=== PATIENT | male | born 1995 | race Caucasian/White ===

== ENCOUNTER 2019-12-14 20:47 | Inpatient (IN) | payer OTHER ==
[2019-12-14 21:15] VITALS: BMI 22.1
--- NOTE | 2019-12-14 21:20 | HP ---
CIWA Score - Admission Criteria [facility] Guidelines: Admission for Medically Managed Detox: Requires at least one of the followin. CIWA greater than 12 2. Seizures within the past 24 hours 3. Delirium tremens within the past 24 hours 4. Hallucinations within the past 24 hours 5. Acute intervention needed for co occurring medical disorder 6. Acute intervention needed for co occurring psychiatric disorder 7. Severe withdrawal that cannot be handled at a lower level of care (continued vomiting, continued diarrhea, abnormal vital signs) requiring intravenous medication and/or fluids 8. Admission Physical Exam S - Vital Signs Vital Signs: Vital Signs - 24 hr 12/14/19 21:13 Temperature 97.3 F L Pulse Rate 83 Respiratory 20 Rate Blood Pressure 125/71 Breathalyzer - Breathalyzer Breathalyzer: 0 Urine Drug Screen - Test Device Lot number: [id number] Expiration date: 10/30/21 - Control Is test valid?: Yes - Results Drug screen NEGATIVE: No Urine drug screen results: THC-Marijuana, ABRAHAN-Cocaine, FEN-Fentanyl, MOP-Opiates
--- NOTE | 2019-12-14 21:28 | BHS.RME ---
Substance Use & Tx History - Substance Use History Heroin Substance amount: 20 bags Frequency of use: Daily Substance route: Injection (ex: intravenous or skin popping) Date of Last Use: 12/14/19 - Last Treatment Date of last treatment: April 2019- [facility] [place] Where was last treatment: Detox Physical/Psych/Mental Status - Behavior Eye Contact: Normal - Cooperativeness Cooperativeness: Cooperative - Thinking Thought Processes: Logical Thought content: Future oriented - Physical Health Problems Is patient presently having any pain?: Yes (generalized body aches and pain) Does patient presently have any injuries (include location): No Does patient currently have a fever: No Is patient : No COWS - Scale Resting Pulse: 1= [place] 81-100 Sweatin=Flushed/Facial Moisture Restless Observation: 0= Sits Still Pupil Size: 0= Normal to Room Light Bone or Joint Aches: 2= Severe Diffuse Aches Runny Nose/ Eye Tearin= Nasal Congestion GI Upset > 30mins: 2= Nausea/Diarrhea (nausea, no diarrhea) Tremor Observation: 4= Gross Tremor/Twitching Yawning Observation: 1= 1-2x During Session Anxiety or Irritability: 4=Extreme Anxiety Goose Flesh Skin: 3=Piloerection COWS Score: 20 CIWA Nausea/Vomitin Muscle Tremors: 5 Anxiety: 4-Mod. Anxious/Guarded Agitation: 3 Paroxysmal Sweats: 2 Orientation: 3-Disoriented Date>2 days Tacttile Disturbances: 0-None Auditory Disturbances: 0-None Visual Disturbances: 0-None Headache: 2-Mild CIWA-Ar Total Score: 21 Treatment Recommendation - Level of Care Level of Care: Opioid Treatment Program (OTP)
--- NOTE | 2019-12-14 21:33 | HP ---
COWS - Scale Resting Pulse: 1= [place] 81-100 Sweatin=Flushed/Facial Moisture Restless Observation: 0= Sits Still Pupil Size: 0= Normal to Room Light Bone or Joint Aches: 2= Severe Diffuse Aches Runny Nose/ Eye Tearin= Nasal Congestion GI Upset > 30mins: 2= Nausea/Diarrhea (nausea, no diarrhea) Tremor Observation: 4= Gross Tremor/Twitching Yawning Observation: 1= 1-2x During Session Anxiety or Irritability: 4=Extreme Anxiety Goose Flesh Skin: 3=Piloerection COWS Score: 20 CIWA Score Nausea/Vomitin Muscle Tremors: 5 Anxiety: 4-Mod. Anxious/Guarded Agitation: 3 Paroxysmal Sweats: 2 Orientation: 3-Disoriented Date>2 days Tacttile Disturbances: 0-None Auditory Disturbances: 0-None Visual Disturbances: 0-None Headache: 2-Mild CIWA-Ar Total Score: 21 - Admission Criteria OASAS Guidelines: Admission for Medically Managed Detox: Requires at least one of the followin. CIWA greater than 12 2. Seizures within the past 24 hours 3. Delirium tremens within the past 24 hours 4. Hallucinations within the past 24 hours 5. Acute intervention needed for co occurring medical disorder 6. Acute intervention needed for co occurring psychiatric disorder 7. Severe withdrawal that cannot be handled at a lower level of care (continued vomiting, continued diarrhea, abnormal vital signs) requiring intravenous medication and/or fluids 8. Admission ROS [facility] Chief Complaint: Seeking admission to detox from alcohol and heroin Allergies/Adverse Reactions: Allergies Allergy/AdvReac Type Severity Reaction Status Date / Time No Known Drug Allergies Allergy Verified 12/14/19 22:12 Fish Containing Products AdvReac Severe Hives Verified 12/14/19 22:11 red (food color) AdvReac Severe Hives Verified 12/14/19 22:11 History of Present Illness: 24 years old male with 11 years of heroin dependence and 8 years of alcohol dependence is seeking admission to detox. This is his first admission to [facility] and he reports that his last admission was at [facility] in 2019. He reports use of 20 bags of heroin via intravenous route and he drinks half a pint of jennifer daily. He denies medical history, suicide attempt/suicidal ideation and reports psych. history of depression. He is unemployed, lives with his parents and denies any legal issues. 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 Exam Limitations: Clinical Condition (actively withdrawing) - Ebola screening Have you traveled outside of the country in the last 21 days: No Have you had contact with anyone from an Ebola affected area: No Have you been sick,other than usual withdrawal symptoms: No Do you have a fever: No - Review of Systems Constitutional: Chills, Loss of Appetite, Malaise, Night Sweats, Changes in sleep EENT: reports: Nose Congestion Respiratory: reports: No Symptoms reported Cardiac: reports: No Symptoms Reported GI: reports: Nausea, Poor Appetite, Poor Fluid Intake, Abdominal cramping : reports: No Symptoms Reported Musculoskeletal: reports: Back Pain, Joint Pain, Muscle Pain Integumentary: reports: Dryness, Flushing, Other (left hand and left lower back abrasions) Neuro: reports: Headache, Tremors Endocrine: reports: No Symptoms Reported Hematology: reports: No Symptoms Reported Psychiatric: reports: Anxious, Depressed Other Systems: Reviewed and Negative Patient History - Patient Medical History Hx Anemia: No Hx Asthma: No Hx Chronic Obstructive Pulmonary Disease (COPD): No Hx Cancer: No Hx Cardiac Disorders: No Hx Congestive Heart Failure: No Hx Hypertension: No Hx Hypercholesterolemia: No Hx Pacemaker: No HX Cerebrovascular Accident: No Hx Seizures: No Hx Diabetes: No Hx Gastrointestinal Disorders: No Hx Liver Disease: No Hx Genitourinary Disorders: No Hx Sexually Transmitted Disorders: No Hx Renal Disease (ESRD): No Hx Thyroid Disease: No Hx Human Immunodeficiency Virus (HIV): No (Negative 2018) Hx Hepatitis C: No Hx Depression: Yes (+ anxiety) Hx Suicide Attempt: No (Denies suicidal ideation at this time) Hx Bipolar Disorder: No Hx Schizophrenia: No - Patient Surgical History Past Surgical History: No - PPD History Previous Implant?: Yes Documented Results: Negative w/o proof Implanted On Prior R Admission?: No PPD to be Administered?: Yes - Reproductive History Patient is a Female of Child Bearing Age (11 -55 yrs old): No (Male) - Smoking Cessation Smoking history: Current every day smoker Have you smoked in the past 12 months: Yes Aproximately how many cigarettes per day: 10 Hx Chewing Tobacco Use: No Initiated information on smoking cessation: Yes 'Breaking Loose' booklet given: 12/14/19 - Substance & Tx. History Hx Alcohol Use: Yes Hx Substance Use: Yes Substance Use Type: Alcohol, Cocaine, Heroin, Marijuana Hx Substance Use Treatment: Yes ( [facility]) - Substances abused Alcohol Substance route: Oral Amount used: 1/2 pint jennifer Age of first use: 10 Date of last use: 12/14/19 Heroin Substance route: Injection Frequency: Daily Amount used: 20 bags Age of first use: 13 Date of last use: 12/14/19 Admission Physical Exam [facility] - Vital Signs Vital Signs: Vital Signs - 24 hr 12/14/19 21:13 Temperature 97.3 F L Pulse Rate 83 Respiratory 20 Rate Blood Pressure 125/71 - Physical General Appearance: Yes: Moderate Distress, Tremorous, Sweating, Anxious HEENTM: Yes: Nasal Congestion Respiratory: Yes: Lungs Clear, Normal Breath Sounds, No Respiratory Distress Neck: Yes: Within Normal Limits Breast: Yes: Breast Exam Deferred Cardiology: Yes: Within Normal Limits Abdominal: Yes: Normal Bowel Sounds, Soft Genitourinary: Yes: Within Normal Limits Back: Yes: Normal Inspection, Other (left lower back abrasion) Musculoskeletal: Yes: Back pain, Muscle Pain Extremities: Yes: Tremors, Other (left hand abrasion) Neurological: Yes: Normal Mood/Affect Integumentary: Yes: Track [place] (both hands) Cleared for Admission [facility] - Detox or Rehab [facility] Level of Care: Medically Managed Detox Regimen/Protocol: Methadone/Librium Claeared for Rehab Admission: No Breathalyzer - Breathalyzer Breathalyzer: 0 Urine Drug Screen - Test Device Lot number: [id number] Expiration date: 10/30/21 - Control Is test valid?: Yes - Results Drug screen NEGATIVE: No Urine drug screen results: THC-Marijuana, ABRAHAN-Cocaine, FEN-Fentanyl, MOP-Opiates Inpatient Rehab Admission - Rehab Decision to Admit Inpatient rehab admission?: No
[2019-12-14] MEDS ORDERED: MAGNESIUM CITRATE 300 ML BOTTLE PO PRN (22:02)
[2019-12-14] MEDS ORDERED: ACETAMINOPHEN 325 MG TABLET (FP) PO PRN ×2 (22:02)
[2019-12-14] MEDS ORDERED: BISMUTH SUBSALICYLATE 524 MG/30 ML UD PO PRN (22:02)
[2019-12-14] MEDS ORDERED: MAGNESIUM HYDROX 2400MG/30ML ORAL SUSPENSION 30 ML CUP PO PRN (22:02)
[2019-12-14] MEDS ORDERED: ONDANSETRON *ODT* 4 MG TABLET SL PRN (22:02)
[2019-12-14] MEDS ORDERED: cloNIDine HCL 0.1 MG TABLET PO PRN (22:02)
[2019-12-14] MEDS ORDERED: MENTHOL/PHENOL 1 EACH UD MM PRN (22:02)
[2019-12-14] MEDS ORDERED: MAG HYDROX/AL HYDROX/SIMETH 30 ML UNIT-DOSE CUP PO PRN (22:02)
[2019-12-14] MEDS ORDERED: METHADONE HCL 10 MG TABLET (FOR DETOX USE ONLY) PO ONE (22:30)
[2019-12-14] MEDS: chlordiazePOXIDE HCL 25 MG CAPSULE PO SCH (23:10)
[2019-12-15] MEDS: hydrOXYzine PAMOATE 25 MG CAPSULE (FP) PO PRN (06:29)
[2019-12-15] MEDS: chlordiazePOXIDE HCL 25 MG CAPSULE PO SCH ×4 (06:29→22:25)
--- NOTE | 2019-12-15 08:51 | PN ---
S CIWA - CIWA Score Nausea/Vomitin Muscle Tremors: 2 Anxiety: 0-No Anxiety, at Ease Agitation: 0-Normal Activity Paroxysmal Sweats: No Perspiration Orientation: 0-Oriented Tacttile Disturbances: 0-None Auditory Disturbances: 0-None Visual Disturbances: 0-None Headache: 0-None Present CIWA-Ar Total Score: 4 S COWS - Scale Resting Pulse: 0= [place] 80 or Below Sweatin= No chills or Flushing Restless Observation: 0= Sits Still Pupil Size: 0= Normal to Room Light Bone or Joint Aches: 0= None Runny Nose/ Eye Tearin= None GI Upset > 30mins: 0= None Tremor Observation of Outstretched Hands: 0= None Yawning Observation: 0= None Anxiety or Irritability: 0= None Goose Flesh Skin: 0=Smooth Skin COWS Score: 0 S Progress Note (SOAP) Subjective: Patient was examined by bedside. Patient is sitting up eating breakfast in the room. In no acute distress, complaints of mild nausea and slight tremor. Objective: 12/15/19 08:49 PE: General: No acute distress, alert and awake MSK: gait normal, pelvis stable, normal range of motion Skin: No lesions or abrasions skin color normal. MS: responds appropriately to questions, oriented x3 12/15/19 09:50 Last Vital Signs Temp Pulse Resp BP Pulse Ox 98.1 F 61 18 100/60 99 12/15/19 08:42 12/15/19 08:42 12/15/19 08:42 12/15/19 08:42 12/15/19 08:42 Current Medications Generic Name Dose Route Start Last Admin Trade Name Freq PRN Reason Stop Dose Admin Acetaminophen 650 mg 12/14/19 22:02 Tylenol - PO Q6H PRN PAIN LEVEL 4 - 6 Acetaminophen 650 mg 12/14/19 22:02 Tylenol - PO Q6H PRN FEVER Al Hydroxide/Mg Hydroxide 30 ml 12/14/19 22:02 Mylanta Oral Suspension - PO Q6H PRN DYSPEPSIA Bismuth Subsalicylate 524 mg 12/14/19 22:02 Pepto-Bismol - PO Q1H PRN DIARRHEA Chlordiazepoxide HCl 50 mg 12/14/19 23:00 12/15/19 06:29 Librium - PO 12/15/19 23:01 50 mg [id number] LAURA Administration Chlordiazepoxide HCl 25 mg 12/16/19 05:00 Librium - PO 12/16/19 23:01 [id number] LAURA Chlordiazepoxide HCl 25 mg 12/14/19 22:02 Librium - PO 12/16/19 23:59 Q4H PRN WITHDRAWAL(CONT SUBST) Chlordiazepoxide HCl 10 mg 12/17/19 05:00 Librium - PO 12/17/19 23:01 [id number] LAURA Chlordiazepoxide HCl 10 mg 12/18/19 05:00 Librium - PO 12/18/19 17:01 Q12H LAURA Chlordiazepoxide HCl 10 mg 12/17/19 00:00 Librium - PO 12/18/19 00:00 Q4H PRN WITHDRAWAL(CONT SUBST) Chlordiazepoxide HCl 10 mg 12/19/19 05:00 Librium - PO 12/19/19 05:01 ONCE@0500 ONE Clonidine 0.1 mg 12/14/19 22:02 Catapres - PO 12/16/19 23:59 Q4H PRN Withdrawal Symptoms Eucalyptus/Menthol/Phenol/Sorbitol 1 each 12/14/19 22:02 Cepastat Lozenge - MM 12/20/19 22:02 Q4H PRN SORE THROAT Hydroxyzine Pamoate 25 mg 12/14/19 22:02 12/15/19 06:29 Vistaril - PO 12/20/19 22:04 25 mg Q4HWA PRN Administration ANXIETY Ibuprofen 400 mg 12/14/19 22:02 Motrin - PO Q6H PRN PAIN LEVEL 1 - 3 Magnesium Citrate 300 ml 12/14/19 22:02 Citroma - PO Q48H PRN CONSTIPATION Magnesium Hydroxide 30 ml 12/14/19 22:02 Milk Of Magnesia - PO PRN PRN CONSTIPATION Melatonin 5 mg 12/15/19 22:00 Melatonin PO HS LAURA Methadone HCl 5 mg 12/19/19 06:00 Dolophine - PO 12/19/19 06:01 ONCE@0600 ONE Methadone HCl 10 mg 12/18/19 10:00 Dolophine - PO 12/18/19 10:01 ONCE ONE Methadone HCl 20 mg 12/16/19 10:00 Dolophine - PO 12/16/19 10:01 ONCE ONE Methadone HCl 20 mg/ Methadone 25 mg 12/15/19 10:00 HCl 5 mg PO 12/15/19 10:01 ONCE ONE Methadone HCl 10 mg/ Methadone 15 mg 12/17/19 10:00 HCl 5 mg PO 12/17/19 10:01 ONCE ONE Methocarbamol 500 mg 12/14/19 22:02 Robaxin - PO 12/20/19 22:02 Q6H PRN MUSCLE SPASMS Nicotine 14 mg 12/15/19 10:00 Nicoderm Patch - TD DAILY LAURA Nicotine Polacrilex 2 mg 12/14/19 22:02 Nicorette Gum - BUC Q2H PRN NICOTINE REPLACEMENT RX Ondansetron HCl 4 mg 12/14/19 22:02 Zofran Odt - SL Q8H PRN Nausea/Vomiting Multivit/Folic Acid/Iron 1 tab 12/15/19 10:00 Vitamins (Sjr) - PO DAILY LAURA Thiamine HCl 100 mg 12/15/19 22:00 Vitamin B1 - PO HS LAURA Discontinued Medications Generic Name Dose Route Start Last Admin Trade Name Freq PRN Reason Stop Dose Admin Methadone HCl 30 mg 12/14/19 22:30 12/14/19 23:10 Dolophine - PO 12/14/19 22:31 30 mg ONCE ONE Administration Tuberculin PPD 5 units 12/14/19 22:30 12/14/19 23:14 Tubersol ([facility] Only) 5ml Vial ID 12/14/19 22:31 0.1 ml ONCE ONE Administration Assessment: 12/15/19 08:49 Assesment: Patient is in detox day 1. Substances being detoxed form are alcohol and heroin on librium and methadone protocol. 12/15/19 08:50 Plan: Plan: Continue librium and methadone protocol
[2019-12-15] MEDS ORDERED: METHADONE HCL 10 MG TABLET (FOR DETOX USE ONLY) ONE (08:57)
[2019-12-15] MEDS ORDERED: METHADONE HCL 5 MG TABLET (FOR DETOX USE ONLY) ONE (08:57)
[2019-12-15] MEDS ORDERED: METHADONE (DETOX) 20 MG, METHADONE (DETOX) 5 MG PO ONE (10:00)
[2019-12-15] MEDS: PRENATAL VITAMINS W/ FOLIC ACID TABLET (FP) PO SCH (10:12)
[2019-12-15] MEDS: NICOTINE 14 MG/24 HOURS TOPICAL PATCH TD SCH (10:13)
[2019-12-15] MEDS: METHOCARBAMOL 500 MG TABLET PO PRN ×3 (10:16→23:14)
[2019-12-15 10:36] LABS: HEMATOCRIT 40.9 % (35.4-49); HEMOGLOBIN 13.8 GM/dL (11.7-16.9); MCH 28.4 pg (25.7-33.7); MCHC 33.7 g/dl (32.0-35.9); MEAN CELL VOLUME 84.4 fl (80-96); MEAN PLT VOLUME 9.1 fl (7.5-11.1); PLATELET COUNT 254 K/MM3 (134-434); RBC 4.84 M/mm3 (4.00-5.60); WHITE BLOOD COUNT 10.8 K/mm3 (4.0-10.0)
--- NOTE | 2019-12-15 10:52 | CONSULT ---
[facility] Psychiatric Consult - Data Date of interview: 12/15/19 Admission source: [facility] Identifying data: Patient is approached for the psychiatric evaluation (requested by medical provider). Mr Stevens declines. " I rather not talk to a psychiatrist. I am fine. There is nothing to discuss with psychiatrists." Nursing staff is informed of patient's choice to waive psychiatric consultation. Patient is found resting comfortably in his room. No evidence of distress or behavior to warrant concern at this time. Psychiatry-Liaison will follow if renewal of a consultation request.
[2019-12-15 10:55] LABS: ALBUMIN 3.6 g/dl (3.4-5.0); BILIRUBIN,TOTAL 1.5 mg/dL (0.2-1); BLOOD UREA NITROGEN 16.3 mg/dL (7-18); CALCIUM 8.9 mg/dL (8.5-10.1); CREATININE 0.9 mg/dL (0.55-1.3); POTASSIUM 3.7 mmol/L (3.5-5.1)
--- NOTE | 2019-12-15 12:41 | EKG ---
Test Reason : Blood Pressure : / mmHG Vent. Rate : 063 BPM Atrial Rate : 063 BPM P-R Int : 170 ms QRS Dur : 094 ms QT Int : 374 ms P-R-T Axes : 054 086 043 degrees QTc Int : 382 ms NORMAL SINUS RHYTHM WITH SINUS ARRHYTHMIA NON-SPECIFIC INTRA-VENTRICULAR CONDUCTION DELAY NO PREVIOUS ECGS AVAILABLE Confirmed by CHEVY FARMER MD ([id number]) on 12/15/2019 12:41:11 PM Referred By: Abundio Melgar Confirmed By:CHEVY FARMER MD
[2019-12-15] MEDS: IBUPROFEN 400 MG TABLET (FP) PO PRN ×2 (15:42→22:24)
[2019-12-15] MEDS: NICOTINE POLACRILEX 2 MG GUM BUC PRN (17:53)
[2019-12-15] MEDS: chlordiazePOXIDE HCL 25 MG CAPSULE PO PRN (19:28)
[2019-12-15] MEDS: THIAMINE HCL 100 MG TABLET (FP) PO SCH (22:24)
[2019-12-15] MEDS: MELATONIN 5 MG TABLETS PO SCH (22:25)
[2019-12-16] MEDS: chlordiazePOXIDE HCL 25 MG CAPSULE PO SCH ×4 (05:45→22:01)
[2019-12-16] MEDS ORDERED: METHADONE HCL 10 MG TABLET (FOR DETOX USE ONLY) PO ONE (10:00)
[2019-12-16] MEDS: NICOTINE 14 MG/24 HOURS TOPICAL PATCH TD SCH (10:31)
[2019-12-16] MEDS: NICOTINE POLACRILEX 2 MG GUM BUC PRN ×5 (10:32→22:03)
[2019-12-16] MEDS: METHOCARBAMOL 500 MG TABLET PO PRN ×2 (10:35→17:20)
--- NOTE | 2019-12-16 11:25 | PN ---
[facility] CIWA - CIWA Score Nausea/Vomitin-No Nausea/No Vomiting Muscle Tremors: None Anxiety: 3 Agitation: 0-Normal Activity Paroxysmal Sweats: 3 Orientation: 0-Oriented Tacttile Disturbances: 0-None Auditory Disturbances: 0-None Visual Disturbances: 0-None Headache: 2-Mild CIWA-Ar Total Score: 8 BHS COWS - Scale Resting Pulse: 0= [place] 80 or Below Sweatin= No chills or Flushing Restless Observation: 1= Difficult to Sit Still Pupil Size: 0= Normal to Room Light Bone or Joint Aches: 4=Acute Joint/Muscle Pain Runny Nose/ Eye Tearin= None GI Upset > 30mins: 0= None Tremor Observation of Outstretched Hands: 0= None Yawning Observation: 1= 1-2x During Session Anxiety or Irritability: 2=Irritable/Anxious Goose Flesh Skin: 0=Smooth Skin COWS Score: 8 S Progress Note (SOAP) Subjective: c/op Objective: 12/16/19 11:24 Vital Signs 12/16/19 12/16/19 06:34 08:50 Temperature 97.6 F 96.1 F L Pulse Rate 63 66 Respiratory 18 16 Rate Blood Pressure 100/57 L 107/68 O2 Sat by Pulse 98 98 Oximetry (%) Laboratory Last Values WBC 10.8 K/mm3 (4.0-10.0) H 12/15/19 08:00 RBC 4.84 M/mm3 (4.00-5.60) 12/15/19 08:00 Hgb 13.8 GM/dL (11.7-16.9) 12/15/19 08:00 Hct 40.9 % (35.4-49) 12/15/19 08:00 MCV 84.4 fl (80-96) 12/15/19 08:00 MCH 28.4 pg (25.7-33.7) 12/15/19 08:00 MCHC 33.7 g/dl (32.0-35.9) 12/15/19 08:00 RDW 13.0 % (11.9-15.9) 12/15/19 08:00 Plt Count 254 K/MM3 (134-434) 12/15/19 08:00 MPV 9.1 fl (7.5-11.1) 12/15/19 08:00 Sodium 138 mmol/L (136-145) 12/15/19 08:00 Potassium 3.7 mmol/L (3.5-5.1) 12/15/19 08:00 Chloride 103 mmol/L (98-107) 12/15/19 08:00 Carbon Dioxide 27 mmol/L (21-32) 12/15/19 08:00 Anion Gap 8 MMOL/L (8-16) 12/15/19 08:00 BUN 16.3 mg/dL (7-18) 12/15/19 08:00 Creatinine 0.9 mg/dL (0.55-1.3) 12/15/19 08:00 Est GFR (CKD-EPI)AfAm 138.06 12/15/19 08:00 Est GFR (CKD-EPI)NonAf 119.12 12/15/19 08:00 Random Glucose 94 mg/dL (74-106) 12/15/19 08:00 Calcium 8.9 mg/dL (8.5-10.1) 12/15/19 08:00 Total Bilirubin 1.5 mg/dL (0.2-1) H 12/15/19 08:00 AST 21 U/L (15-37) 12/15/19 08:00 ALT 23 U/L (13-61) 12/15/19 08:00 Alkaline Phosphatase 86 U/L (45-117) 12/15/19 08:00 Total Protein 7.0 g/dl (6.4-8.2) 12/15/19 08:00 Albumin 3.6 g/dl (3.4-5.0) 12/15/19 08:00 Syphilis Serology Non-reactive (NONREACTIVE) 12/15/19 08:00 COVID-19 (MELANIE) Not detected (Not Detected) 12/14/19 22:15 Labs noted. Assessment: 12/16/19 11:24 AOX3, in no acute respiratory distress. Full ROM, ambulating in the unit. Withdrawal symptoms. Plan: continue detox.
[2019-12-16] MEDS: PRENATAL VITAMINS W/ FOLIC ACID TABLET (FP) PO SCH (12:20)
[2019-12-16] MEDS: chlordiazePOXIDE HCL 25 MG CAPSULE PO PRN (13:31)
[2019-12-16] MEDS: hydrOXYzine PAMOATE 25 MG CAPSULE (FP) PO PRN ×3 (13:31→22:03)
[2019-12-16] MEDS: THIAMINE HCL 100 MG TABLET (FP) PO SCH (22:01)
[2019-12-16] MEDS: MELATONIN 5 MG TABLETS PO SCH (22:01)
[2019-12-17] MEDS ORDERED: chlordiazePOXIDE HCL 10 MG CAPSULE PO PRN
[2019-12-17] MEDS: chlordiazePOXIDE HCL 10 MG CAPSULE PO SCH ×3 (05:31→17:24)
[2019-12-17] MEDS: hydrOXYzine PAMOATE 25 MG CAPSULE (FP) PO PRN ×2 (05:31→17:25)
[2019-12-17] MEDS: METHOCARBAMOL 500 MG TABLET PO PRN ×2 (05:33→11:56)
[2019-12-17] MEDS ORDERED: METHADONE HCL 10 MG TABLET (FOR DETOX USE ONLY) ONE (09:00)
[2019-12-17] MEDS ORDERED: METHADONE HCL 5 MG TABLET (FOR DETOX USE ONLY) ONE (09:00)
[2019-12-17] MEDS ORDERED: METHADONE (DETOX) 10 MG, METHADONE (DETOX) 5 MG PO ONE (10:00)
[2019-12-17] MEDS: PRENATAL VITAMINS W/ FOLIC ACID TABLET (FP) PO SCH (10:13)
[2019-12-17] MEDS: NICOTINE POLACRILEX 2 MG GUM BUC PRN ×4 (10:13→17:26)
[2019-12-17] MEDS: NICOTINE 14 MG/24 HOURS TOPICAL PATCH TD SCH (10:13)
[2019-12-17 13:40] VITALS: TEMP 98.6
--- NOTE | 2019-12-17 14:00 | PN ---
[facility] CIWA - CIWA Score Nausea/Vomitin-Mild Nausea/No Vomiting Muscle Tremors: 1-None Visible, but [place] Anxiety: 1-Mildly Anxious Agitation: 0-Normal Activity Paroxysmal Sweats: No Perspiration Orientation: 0-Oriented Tacttile Disturbances: 0-None Auditory Disturbances: 0-None Visual Disturbances: 2-Mild Sensitivity Headache: 1-Very Mild CIWA-Ar Total Score: 6 BHS COWS - Scale Resting Pulse: 1= [place] 81-100 Sweatin= No chills or Flushing Restless Observation: 0= Sits Still Pupil Size: 1= Pupils >than Normal Bone or Joint Aches: 1= Mild Discomfort Runny Nose/ Eye Tearin= None GI Upset > 30mins: 1= Stomach Cramp Tremor Observation of Outstretched Hands: 1= Tremor [place], Not Seen Yawning Observation: 0= None Anxiety or Irritability: 1=Feels Anxious/Irritable Goose Flesh Skin: 0=Smooth Skin COWS Score: 6 S Progress Note (SOAP) Subjective: 24 years old male was admitted on 12/14/19 for alcohol and opiate withdrawal sx management treating with librium and methadone detox regiment bmi 22.2 continue ensure supplement feels better today but tired ate breakfast and lunch in room limited conversation with staff Objective: 12/17/19 14:00 Laboratory Tests 12/14/19 12/15/19 12/15/19 22:15 08:00 08:00 WBC 10.8 H RBC 4.84 Hgb 13.8 Hct 40.9 MCV 84.4 MCH 28.4 MCHC 33.7 RDW 13.0 Plt Count 254 MPV 9.1 Sodium Potassium Chloride Carbon Dioxide Anion Gap BUN Creatinine Est GFR (CKD-EPI)AfAm Est GFR (CKD-EPI)NonAf Random Glucose Calcium Total Bilirubin AST ALT Alkaline Phosphatase Total Protein Albumin Syphilis Serology Non-reactive COVID-19 (MELANIE) Not detected 12/15/19 08:00 WBC RBC Hgb Hct MCV MCH MCHC RDW Plt Count MPV Sodium 138 Potassium 3.7 Chloride 103 Carbon Dioxide 27 Anion Gap 8 BUN 16.3 Creatinine 0.9 Est GFR (CKD-EPI)AfAm 138.06 Est GFR (CKD-EPI)NonAf 119.12 Random Glucose 94 Calcium 8.9 Total Bilirubin 1.5 H AST 21 ALT 23 Alkaline Phosphatase 86 Total Protein 7.0 Albumin 3.6 Syphilis Serology COVID-19 (MELANIE) lab noted Assessment: 12/17/19 14:01 alcohol and opiate withdrawal Plan: librium and methadone regiment
[2019-12-17 18:00] VITALS: BP 117/71; PULSE 64
--- NOTE | 2019-12-17 18:21 | DS ---
[facility] Detox Discharge Summary Admission Date: 12/14/19 - History Additional Comments: called by nursing for pt asking to leave . Pt was found dressed at the nursing station , declined to comment regarding reasons for leaving , states " I told the story 3 x already , I don't feel like repeating it, I am leaving , I don't feel safe here " . Pt was educated about the risks of leaving prior to completion of tx , including relapse, OD and . Pt verbalized an understanding and insisted he wished to proceed w/ d/c Declined further medical attention . AAO x 3 , ambulating freely . Vital Signs - 24 hr 12/16/19 12/17/19 12/17/19 20:38 06:25 08:40 Temperature 97.7 F 97.1 F L 97.1 F L Pulse Rate 72 78 81 Respiratory 18 18 18 Rate Blood Pressure 132/65 112/63 126/82 O2 Sat by Pulse 98 98 98 Oximetry (%) 12/17/19 12/17/19 13:39 16:45 Temperature 98.6 F 98.6 F Pulse Rate 82 64 Respiratory 16 16 Rate Blood Pressure 114/78 117/71 O2 Sat by Pulse 98 Oximetry (%) - Physical Exam Results Vital Signs: Vital Signs Temperature 98.6 F 12/17/19 16:45 Pulse Rate 64 12/17/19 16:45 Respiratory Rate 16 12/17/19 16:45 Blood Pressure 117/71 12/17/19 16:45 O2 Sat by Pulse Oximetry (%) 98 12/17/19 13:39 - Medication Discharge Medications: Ambulatory Orders NK [No Known Home Medication] 12/14/19 - AMA Did Patient Leave Against Medical Advice: Yes
[2019-12-18] MEDS ORDERED: chlordiazePOXIDE HCL 10 MG CAPSULE PO SCH (05:00)
[2019-12-18] MEDS ORDERED: METHADONE HCL 10 MG TABLET (FOR DETOX USE ONLY) PO ONE (10:00)
[2019-12-19] MEDS ORDERED: chlordiazePOXIDE HCL 10 MG CAPSULE PO ONE (05:00)
[2019-12-19] MEDS ORDERED: METHADONE HCL 5 MG TABLET (FOR DETOX USE ONLY) PO ONE (06:00)
== END 2019-12-17 18:03 | disposition left against medical advice (07) | DRG 770 ==
LOC: YASAS 20:47 → Y3N 22:09
PROVIDERS: ADMIT Allergy & Immunology; ATTEND Allergy & Immunology
PROC: HZ2ZZZZ Detoxification Services for Substance Abuse Treatment (ICD-10-PCS; principal; 2019-12-14)
DX: F10.230 Alcohol dependence with withdrawal, uncomplicated (principal); F11.23 Opioid dependence with withdrawal; F14.20 Cocaine dependence, uncomplicated; F12.20 Cannabis dependence, uncomplicated; F17.210 Nicotine dependence, cigarettes, uncomplicated; F41.9 Anxiety disorder, unspecified; F32.9 Major depressive disorder, single episode, unspecified; Z91.013 Allergy to seafood; Z91.02 Food additives allergy status
CPT/HCPCS: 36415; 80053; 85027; 86780; 93005; 93010; U0003